=== PATIENT | female | born 1990 | race Caucasian/White ===

== ENCOUNTER 2018-07-05 04:06 | Emergency (ER) | payer OTHER ==
[~2018-07-05] VITALS: Ht 154.9 cm; Wt 73.0 kg
[2018-07-05 04:11] VITALS: BP 100/67
[2018-07-05 04:41] LABS: MICROSCOPIC INDICATED
[2018-07-05 04:54] LABS: CULTURE INDICATED? NO
[2018-07-05 05:24] LABS: BASOPHILS # (AUTO) 0.03 x10^3/uL (0-0.1); BASOPHILS % (AUTO) 0 % (0-1); EOSINOPHILS # (AUTO) 0.07 x10^3/uL (0-0.4); EOSINOPHILS % (AUTO) 1 % (1-7); LYMPHOCYTES # (AUTO) 1.18 x10^3/uL (1-3.4); LYMPHOCYTES % (AUTO) 13 % (22-44); MD NO; MEAN CORPUSCULAR HGB CONC 33.7 g/dL (32.4-35.8); MEAN CORPUSCULAR VOLUME 86.1 fL (80-100); MEAN PLATELET VOLUME 8.5 fL (7.4-10.4); MONOCYTES # (AUTO) 0.54 x10^3/uL (0.2-0.8); MONOCYTES % (AUTO) 6 % (2-9); NEUTROPHILS # (AUTO) 7.44 x10^3/uL (1.8-6.8); NEUTROPHILS % (AUTO) 80 % (42-75); PLATELET COUNT 285 x10^3/uL (130-400); RED BLOOD COUNT 4.68 x10^6/uL (3.82-5.3); RED CELL DISTRIBUTION WIDTH 14.6 % (9.6-15.2)
[2018-07-05 05:34] LABS: ALANINE AMINOTRANSFERASE 24 U/L (12-78); ALBUMIN 3.9 g/dL (3.4-5.0); ANION GAP 4 mmol/L (5-15); CALCIUM 8.4 mg/dL (8.5-10.1); CHLORIDE 109 mmol/L (98-107); CREATININE 0.87 mg/dL (0.55-1.02)
[2018-07-05 05:39] LABS: ALKALINE PHOSPHATASE 69 U/L (45-117); BILIRUBIN,TOTAL 0.4 mg/dL (0.2-1.0); TOTAL PROTEIN 7.5 g/dL (6.4-8.2)
[2018-07-05] MEDS ORDERED: ONDANSETRON ODT 4 MG ONE (06:17)
[2018-07-05] MEDS ORDERED: KETOROLAC 30 MG/1 ML ONE (06:17)
[2018-07-05 06:25] LABS: MICROSCOPIC NOT IND
[2018-07-05] MEDS ORDERED: KETOROLAC 30 MG/1 ML IM ONE (06:30)
[2018-07-05] MEDS ORDERED: ONDANSETRON ODT 4 MG PO ONE (06:30)
[2018-07-05 06:38] LABS: CULTURE INDICATED? NO
== END 2018-07-05 07:09 | disposition home or self-care (01) ==
LOC: ED 05:46
DX: R10.31 Right lower quadrant pain (principal); Z87.442 Personal history of urinary calculi
CPT/HCPCS: 36415; 80053; 81001; 81003; 83690; 84703; 85025; 96372; 99284; J1885; Q0162